=== PATIENT | female | born 1955 | race Two or more races ===

== ENCOUNTER 2022-11-01 08:15 | Inpatient (IN) | payer OTHER ==
[~2022-11-01] VITALS: Ht 160 cm; Wt 65.8 kg
[2022-11-01] MEDS ORDERED: GLIMEPIRIDE2 M1 PO (10:02)
[2022-11-01] MEDS ORDERED: LEVOTHYROXINE25 MCG PO (10:02)
[2022-11-01] MEDS ORDERED: TRAM1TAB98 PO (10:03)
[2022-11-07] MEDS ORDERED: QUETIAPINE FUM100 MG (09:53)
[2022-11-07] MEDS ORDERED: LORAZEPAM0.5 MG (09:53)
[2022-11-07] MEDS ORDERED: LEVOTHYROXINE50 MCG (09:53)
[2022-11-07] MEDS ORDERED: DULOXETINE HCL60 MG (09:53)
[2022-11-07] MEDS ORDERED: RESTORIL30 MG (09:53)
[2022-11-07] MEDS ORDERED: ROSUVASTATIN CAL5 MG (09:53)
[2022-11-07] MEDS ORDERED: LOSARTAN POTASS25 MG (09:53)
[2022-11-08] MEDS ORDERED: CEFADROXIL500 MG PO (10:11)
[2022-11-08] MEDS ORDERED: ELIQUIS2.5 MG PO (10:11)
[2022-11-08] MEDS ORDERED: PERCOCET 5-3251 EACH PO (10:11)
== END 2022-11-08 18:03 | DRG 470 ==
LOC: O/R 11-06 06:35 → SURG 11-06 06:35 → SURH 11-06 08:15 → SURG 11-06 18:01 → SURH 11-06 20:45 → SURG 11-08 18:03
PROVIDERS: ADMIT Orthopaedic Surgery; ATTEND Orthopaedic Surgery
PROC: 0QUF07Z Supplement Left Patella with Autologous Tissue Substitute, Open Approach (ICD-10-PCS; 2022-11-06)
PROC: 0SRD0J9 Replacement of Left Knee Joint with Synthetic Substitute, Cemented, Open Approach (ICD-10-PCS; principal; 2022-11-06 20:45)
DX: M17.12 Unilateral primary osteoarthritis, left knee (principal); M22.12 Recurrent subluxation of patella, left knee; I10 Essential (primary) hypertension; E03.9 Hypothyroidism, unspecified

== ENCOUNTER → 2022-11-05 | Emergency (ER) | payer OTHER ==
[~2022-11-05] VITALS: Ht 160 cm; Wt 66.2 kg
[~2022-11-05] MED LIST: GLIMEPIRIDE2 M1 PO; LEVOTHYROXINE25 MCG PO; TRAM1TAB98 PO
== END | disposition left against medical advice (07) ==
LOC: ER 08:50
DX: Z53.21 Procedure and treatment not carried out due to patient leaving prior to being seen by health care provider (principal)

== ENCOUNTER → 2023-01-08 | Day surgery (SDC) | payer OTHER ==
[~2023-01-08] VITALS: Ht 160 cm; Wt 65.8 kg
[~2023-01-08] MED LIST changes: +ASA325 M1 PO; +CEFADROXIL500 MG PO; +DULOXETINE HCL60 MG; +ELIQUIS2.5 MG PO; +LEVOTHYROXINE50 MCG; +LORAZEPAM0.5 MG; +LOSARTAN POTASS25 MG; +PERCOCET 5-3251 EACH PO; +QUETIAPINE FUM100 MG; +RESTORIL30 MG; +ROSUVASTATIN CAL5 MG
== END | disposition home or self-care (01) ==
LOC: ADM 01-07 07:45 → CIR.AMB 07:12
PROVIDERS: ATTEND Orthopaedic Surgery
DX: M24.562 Contracture, left knee (principal); M25.462 Effusion, left knee; Z96.662 Presence of left artificial ankle joint; I10 Essential (primary) hypertension; E11.9 Type 2 diabetes mellitus without complications; Z20.822 Contact with and (suspected) exposure to COVID-19

== ENCOUNTER 2023-02-01 10:45 | Inpatient (IN) | payer OTHER ==
[2023-02-06] MEDS ORDERED: FLONASE16 GM (08:42)
[2023-02-06] MEDS ORDERED: OMEPRAZOLE20 MG (08:42)
[2023-02-06] MEDS ORDERED: FAMOTIDINE40 MG (08:42)
[2023-02-06] MEDS ORDERED: DULOXETINE HCL60 MG (08:42)
[2023-02-06] MEDS ORDERED: DULCOLAX5 MG (08:42)
[2023-02-06] MEDS ORDERED: FENOFIBRATE145 MG (08:43)
[2023-02-06] MEDS ORDERED: QUETIAPINE FUM100 MG (08:43)
[2023-02-06] MEDS ORDERED: INTEGRA PLUS C1 EACH (08:43)
[2023-02-06] MEDS ORDERED: VITAMIN D325 MC2 (08:43)
[2023-02-08] MEDS ORDERED: DUI500 PO (07:38)
[2023-02-08] MEDS ORDERED: ELIQUIS2.5 MG PO (07:38)
[2023-02-08] MEDS ORDERED: PERCOCET 5-3251 EACH PO (07:38)
== END 2023-02-08 14:13 | disposition home or self-care (01) | DRG 902 ==
LOC: O/R 02-05 07:27 → SURG 02-05 07:27
PROVIDERS: ADMIT Orthopaedic Surgery; ATTEND Orthopaedic Surgery
PROC: 0SWD0JZ Revision of Synthetic Substitute in Left Knee Joint, Open Approach (ICD-10-PCS; 2023-02-06)
PROC: 0SND0ZZ Release Left Knee Joint, Open Approach (ICD-10-PCS; 2023-02-06)
PROC: 3E10X8Z Irrigation of Skin and Mucous Membranes using Irrigating Substance (ICD-10-PCS; 2023-02-06)
PROC: 0JBP0ZZ Excision of Left Lower Leg Subcutaneous Tissue and Fascia, Open Approach (ICD-10-PCS; principal; 2023-02-06 15:00)
DX: T81.32XA Disruption of internal operation (surgical) wound, not elsewhere classified, initial encounter (principal); T84.018A Broken internal joint prosthesis, other site, initial encounter; T84.033A Mechanical loosening of internal left knee prosthetic joint, initial encounter; M17.12 Unilateral primary osteoarthritis, left knee; M85.462 Solitary bone cyst, left tibia and fibula; M23.8X2 Other internal derangements of left knee; M25.662 Stiffness of left knee, not elsewhere classified; Z96.652 Presence of left artificial knee joint; Y79.2 Prosthetic and other implants, materials and accessory orthopedic devices associated with adverse incidents

== ENCOUNTER 2023-08-29 07:41 | Outpatient (CLI) | payer OTHER ==
[~2023-08-29 07:41] MED LIST changes: +DUI500 PO; +DULCOLAX5 MG; +FAMOTIDINE40 MG; +FENOFIBRATE145 MG; +FLONASE16 GM; +INTEGRA PLUS C1 EACH; +OMEPRAZOLE20 MG; +VITAMIN D325 MC2
== END 2023-08-29 08:05 | disposition home or self-care (01) ==
LOC: RX STUDY 07:41
PROVIDERS: ATTEND Internal Medicine Gastroenterology
DX: R13.12 Dysphagia, oropharyngeal phase (principal)

== ENCOUNTER 2024-07-03 08:30 | Inpatient (IN) | payer OTHER ==
[~2024-07-03] VITALS: Ht 160 cm; Wt 67.1 kg
[2024-07-03 09:54] LABS: HEMATOCRIT 39.6 % (36.0-45.00); HEMOGLOBIN 13.7 g/dL (12.0-15.00); MEAN CORPUSCULAR HEMOGLOBIN 29.7 pg (27.00-32.0); MEAN CORPUSCULAR HGB CONC 34.5 g/dl (32.0-36.0); RED BLOOD COUNT 4.61 M/uL (4.00-6.00); RED CELL DISTRIBUTION WIDTH 14.5 % (11.5-14.5)
[2024-07-03 09:56] LABS: PLATELET COUNT 125 K/uL (150-450)
[2024-07-03 10:02] LABS: PH,URINE 5.5 (5.0-8.0); URINE APPEARANCE Clear; URINE BILIRRUBIN Negative (NEGATIVE); URINE BLOOD Trace; URINE COLOR Yellow; URINE KETONE Negative (NEGATIVE); URINE LEUKOCYTE Negative; URINE NITRATE Negative; URINE PROTEIN Negative (NEGATIVE); URINE UROBILINOGEN 0.2 E.U./dl
[2024-07-03 10:06] LABS: URINE BACTERIA 94.3 uL (0.0-1933); URINE EPITHELIAL CELLS 3.2 uL (0.0-38.8); URINE RBC 7.1 uL (0.0-20.8)
[2024-07-03 10:12] LABS: URINE GLUCOSE >=1000 MG/DL (NEGATIVE)
[2024-07-03 10:23] LABS: INR 1.05; PARTIAL THROMBOPLASTIN TIME 28.4 SECONDS (22.0-34.0); PROTHROMBIN TIME 11.4 SECONDS (9.0-11.5)
[2024-07-03 10:53] VITALS: BP 140/85
[2024-07-03 10:54] VITALS: BP 137/61
[2024-07-03 11:28] LABS: ALBUMIN 4.1 gm/dL (3.4-5.0); BILIRUBIN TOTAL 0.27 mg/dL (0.3-1.2); CALCIUM 9.2 mg/dL (8.5-10.1); CREATININE SERUM 1.08 mg/dL (0.55-1.02); GFR 50.76; GLOBULINA 2.9 G/DL (2.4-3.5); POTASSIUM 4.06 mEq/L (3.5-5.1)
[2024-07-03 11:28] LABS: CHOL HDL RATIO 5.1 (0-5.0)
[2024-07-03 11:54] LABS: RH POSITIVE
[2024-07-07] MEDS ORDERED: TRANEXAMIC ACID 100MG/1ML (1000MG) AMPUL IV ONE ×2 (20:00)
[2024-07-07] MEDS ORDERED: CEFAZOLIN SODIUM 1,000 MG VIAL IV ONE (20:00)
[2024-07-07] MEDS ORDERED: VANCOMYCIN HCL 1,000 MG VIAL IR ONE (20:15)
[2024-07-07] MEDS ORDERED: MORPHINE SULFATE 4 MG/ML CARTRIDGE IV PRN (21:45)
[2024-07-07] MEDS ORDERED: ONDANSETRON HCL 2 MG/ML VIAL IV PRN (21:45)
[2024-07-07] MEDS ORDERED: SODIUM CHLORIDE 0.45 % 1,000 ML IV SCH (21:45)
[2024-07-07] MEDS ORDERED: OxyCODONE HCL 5 MG TABLET (ROXICODONE) PO PRN (21:45)
[2024-07-08] MEDS ORDERED: ACETAMINOPHEN 500 MG GEL..CAP PO SCH
[2024-07-08] MEDS ORDERED: GABAPENTIN 300 MG CAPSULE PO SCH (01:00)
[2024-07-08] MEDS ORDERED: CEFAZOLIN SODIUM 1,000 MG VIAL IV SCH (01:00)
[2024-07-08 01:37] VITALS: BP 137/61; O2SAT 96
[2024-07-08 06:28] LABS: HEMATOCRIT 34.7 % (36.0-45.00); MEAN CELL VOLUME 85.9 fL (80.00-100.00); MEAN CORPUSCULAR HEMOGLOBIN 29.7 pg (27.00-32.0); MEAN CORPUSCULAR HGB CONC 34.6 g/dl (32.0-36.0); RED BLOOD COUNT 4.04 M/uL (4.00-6.00); RED CELL DISTRIBUTION WIDTH 14.2 % (11.5-14.5)
[2024-07-08 06:34] LABS: PLATELET COUNT 91 K/uL (150-450)
[2024-07-08 08:30] VITALS: BP 111/54; O2SAT 99
[2024-07-08] MEDS ORDERED: PERCOCET 5-3251 EACH PO (08:35)
[2024-07-08] MEDS ORDERED: CEFADROXIL500 MG PO (08:35)
[2024-07-08] MEDS ORDERED: ELIQUIS2.5 MG PO (08:35)
[2024-07-08] MEDS ORDERED: APIXABAN 2.5 MG TABLET PO SCH (09:00)
[2024-07-08] MEDS ORDERED: SENNOSIDES 1 TAB TABLET PO SCH (09:00)
[2024-07-08] MEDS ORDERED: OxyCODONE HCL/APAP UD (PERCOCET) PO SCH (12:15)
[2024-07-08] MEDS ORDERED: SOD FERRIC GLUC COMPLX/SUCROSE 62.5 MG/5 ML AMPUL IV SCH (14:04)
[2024-07-08 16:00] VITALS: BP 114/55; O2SAT 98
[2024-07-08] MEDS ORDERED: VITAMIN B COMPLEX 1 EACH PO SCH (17:00)
[2024-07-08] MEDS ORDERED: Cyanocobalamin/Mecobalamin 1 TAB.SL SL SCH (17:00)
[2024-07-08] MEDS ORDERED: TEMAZEPAM 15 MG CAPSULE PO SCH (21:00)
[2024-07-09 01:00] VITALS: BP 102/50; O2SAT 95
[2024-07-09] MEDS ORDERED: LEVOTHYROXINE SODIUM 50 MCG TABLET PO SCH (06:00)
[2024-07-09 07:55] LABS: HEMATOCRIT 30.8 % (36.0-45.00); HEMOGLOBIN 10.6 g/dL (12.0-15.00); MEAN CELL VOLUME 87.5 fL (80.00-100.00); MEAN CORPUSCULAR HEMOGLOBIN 30.1 pg (27.00-32.0); MEAN CORPUSCULAR HGB CONC 34.4 g/dl (32.0-36.0); RED BLOOD COUNT 3.52 M/uL (4.00-6.00); RED CELL DISTRIBUTION WIDTH 14.1 % (11.5-14.5)
[2024-07-09 08:00] LABS: PLATELET COUNT 88 K/uL (150-450)
[2024-07-09] MEDS ORDERED: QUETIAPINE FUMARATE 100 MG TABLET PO SCH (09:00)
[2024-07-09] MEDS ORDERED: LOSARTAN POTASSIUM 25 MG TABLET PO SCH (09:00)
[2024-07-09] MEDS ORDERED: IRON FUM,PS/FOLIC ACID/VITC/B3 1 CAP CAPSULE PO SCH (09:00)
[2024-07-09 10:02] VITALS: BP 99/53; O2SAT 99
[2024-07-09 16:00] VITALS: BP 91/55; O2SAT 98
== END 2024-07-09 19:00 | DRG 468 ==
LOC: SURH 07-07 08:30 → O/R 07-07 16:37 → SURG 07-07 16:37 → SURH 07-07 17:00 → SURG 07-07 21:47
PROVIDERS: ADMIT Orthopaedic Surgery; ATTEND Orthopaedic Surgery
PROC: 0SNC0ZZ Release Right Knee Joint, Open Approach (ICD-10-PCS; 2024-07-07)
PROC: 0QU60JZ Supplement Right Upper Femur with Synthetic Substitute, Open Approach (ICD-10-PCS; 2024-07-07)
PROC: 0SWC0JZ Revision of Synthetic Substitute in Right Knee Joint, Open Approach (ICD-10-PCS; principal; 2024-07-07 17:00)
DX: T84.032A Mechanical loosening of internal right knee prosthetic joint, initial encounter (principal); M17.11 Unilateral primary osteoarthritis, right knee; M85.461 Solitary bone cyst, right tibia and fibula; M25.661 Stiffness of right knee, not elsewhere classified; I10 Essential (primary) hypertension